=== PATIENT | female | born 1990 | race Caucasian/White ===

== ENCOUNTER 2018-07-25 14:32 | Emergency (ER) | payer OTHER ==
[~2018-07-25] VITALS: Ht 162.6 cm; Wt 68.0 kg
[2018-07-25] MEDS ORDERED: NS IV 1000 ML 1,000 ML IV SCH (16:00)
[2018-07-25 16:16] LABS: BASOPHILS % (AUTO) 0 % (0-10); EOSINOPHILS % (AUTO) 0 % (0-10); HEMATOCRIT 40 % (35-52); HEMOGLOBIN 13.6 G/DL (11.5-16.0); LYMPHOCYTES # (AUTO) 1.6 X 10^3 (1.0-4.0); LYMPHOCYTES % (AUTO) 8 % (12-44); MEAN CORPUSCULAR HEMOGLOBIN 30 PG (25-34); MEAN CORPUSCULAR HGB CONC 34 G/DL (32-36); MEAN CORPUSCULAR VOLUME 89 FL (80-99); MONOCYTES # (AUTO) 2.2 X 10^3 (0.0-1.0); MONOCYTES % (AUTO) 12 % (0-12); NEUTROPHILS # (AUTO) 15.1 X 10^3 (1.8-7.8); NEUTROPHILS % (AUTO) 80 % (42-75); PLATELET COUNT 284 10^3/uL (130-400); RED CELL DISTRIBUTION WIDTH 12.8 % (10.0-14.5); WHITE BLOOD COUNT 18.9 10^3/uL (4.3-11.0)
[2018-07-25 16:39] LABS: BAND NEUTROPHILS 0 %; BASOPHILS % (MANUAL) 0 %; EOSINOPHILS % (MANUAL) 0 %; LYMPHOCYTES % (MANUAL) 7 %; MONOCYTES % (MANUAL) 9 %; NEUTROPHILS % (MANUAL) 84 %; RBC MORPH NORMAL
[2018-07-25] MEDS ORDERED: KETOROLAC 30 MG/ML VIAL IVP ONE (16:45)
[2018-07-25] MEDS ORDERED: DEXAMETHASONE 10 MG/ML (DECADRON) 1 ML VIAL IV ONE (16:45)
[2018-07-25] MEDS ORDERED: cefTRIAXone FOR IV USE 1,000 MG in WATER (STERILE) FOR INJECTION 10 ML IV ONE (16:45)
[2018-07-25] MEDS ORDERED: PRD20T PO (16:50)
[2018-07-25] MEDS ORDERED: CEFU500T63 PO (16:50)
--- NOTE | 2018-07-25 16:50 | ED EENT ---
History of Present Illness General Chief Complaint: Oral/Throat Problems Stated Complaint: SORE THROAT AND EARS Nursing Triage Note: PATIENT STATES THAT HER THROAT HAS BEEN HURTING FOR 3 DAYS. Source: patient Exam Limitations: no limitations History of Present Illness Date Seen by Provider: Jul 25, 2018 Time Seen by Provider: 16:46 Initial Comments To ER with a three-day history of sore throat. She has bilateral ear pain as well. Timing/Duration: abrupt Severity: moderate Location: throat Associated Symptoms: No cough, No facial pain/swelling; fever, sore throat Allergies and Home Medications Allergies Coded Allergies: No Known Drug Allergies (Unverified , 07/25/18) Patient Home Medication List Home Medication List Reviewed: Yes Review of Systems Review of Systems Constitutional: see HPI Eyes: No Symptoms Reported Ears: See HPI, Pain Nose: no symptoms reported Mouth: no symptoms reported Throat: see HPI, pain, swelling Respiratory: no symptoms reported Cardiovascular: no symptoms reported Musculoskeletal: no symptoms reported Past Guxkert-Rehgbs-Iqjdgo Hx Patient Social History Alcohol Use: Denies Use Recreational Drug Use: No Smoking Status: Current Someday Smoker Type Used: Cigarettes Recent Foreign Travel: No Contact w/Someone Who Travel: No Recent Infectious Disease Expo: No Recent Hopitalizations: No Seasonal Allergies Seasonal Allergies: No Past Medical History Surgeries: No Respiratory: No Cardiac: No Neurological: No Genitourinary: No Gastrointestinal: No Musculoskeletal: No Endocrine: No HEENT: No Cancer: No Psychosocial: No Integumentary: No Physical Exam Vital Signs Vital Signs - First Documented 07/25/18 14:51 Temp 99.9 Pulse 120 Resp 18 B/P (MAP) 115/77 (90) Pulse Ox 97 Height, Weight, BMI Height: 5'4.00" Weight: 150lbs. 0oz. 68.669725hk; BMI Method:Stated General Appearance: WD/WN, no apparent distress Eyes: bilateral eye normal inspection, bilateral eye PERRL, bilateral eye EOMI Ears: bilateral ear auricle normal, bilateral ear canal normal, bilateral ear TM normal Mouth/Throat: normal mouth inspection, tonsillar exudate, tonsillar swelling, other (uvula is midline, both tonsils are symmetrical though they are both very enlarged and erythematous with exudate.) Neck: non-tender, full range of motion, lymphadenopathy (R), lymphadenopathy (L ) Respiratory: normal breath sounds, no respiratory distress, no accessory muscle use Gastrointestinal: normal bowel sounds, non tender Neurologic/Psychiatric: alert, normal mood/affect, oriented x 3 Skin: normal color, warm/dry Progress/Results/Core Measures Results/Orders Lab Results Laboratory Tests Test 07/25/18 14:58 07/25/18 16:09 Range/Units Group A Streptococcus Screen NEGATIVE NEGATIVE White Blood Count 18.9 H 4.3-11.0 10^3/uL Red Blood Count 4.48 4.35-5.85 10^6/uL Hemoglobin 13.6 11.5-16.0 G/DL Hematocrit 40 35-52 % Mean Corpuscular Volume 89 80-99 FL Mean Corpuscular Hemoglobin 30 25-34 PG Mean Corpuscular Hemoglobin Concent 34 32-36 G/DL Red Cell Distribution Width 12.8 10.0-14.5 % Platelet Count 284 130-400 10^3/uL Mean Platelet Volume 9.0 7.4-10.4 FL Neutrophils (%) (Auto) 80 H 42-75 % Lymphocytes (%) (Auto) 8 L 12-44 % Monocytes (%) (Auto) 12 0-12 % Eosinophils (%) (Auto) 0 0-10 % Basophils (%) (Auto) 0 0-10 % Neutrophils # (Auto) 15.1 H 1.8-7.8 X 10^3 Lymphocytes # (Auto) 1.6 1.0-4.0 X 10^3 Monocytes # (Auto) 2.2 H 0.0-1.0 X 10^3 Eosinophils # (Auto) 0.0 0.0-0.3 10^3/uL Basophils # (Auto) 0.0 0.0-0.1 10^3/uL Neutrophils % (Manual) 84 % Lymphocytes % (Manual) 7 % Monocytes % (Manual) 9 % Eosinophils % (Manual) 0 % Basophils % (Manual) 0 % Band Neutrophils 0 % Blood Morphology Comment NORMAL Serum Test, Qualitative NEGATIVE NEGATIVE Monoscreen NEGATIVE NEGATIVE Micro Results Microbiology 07/25/18 Influenza Types A,B Antigen (BHARATI) - Final, Complete My Orders Orders - ABDI REYNOLDS APRN Rapid Strep A Screen (07/25/18 15:00) Cbc With Automated Diff (07/25/18 15:15) Monotest (07/25/18 15:15) Influenza A And B Antigens (07/25/18 15:15) Hcg,Qualitative Serum (07/25/18 15:15) Iv Heplock-Insert (Order) (07/25/18 15:15) Ns Iv 1000 Ml (Sodium Chloride 0.9%) (07/25/18 16:00) Manual Differential (07/25/18 16:09) Dexamethasone Injection (Decadron Inject (07/25/18 16:45) Ceftriaxone For Iv Use (Rocephin For I (07/25/18 16:45) Ketorolac Injection (Toradol Injection) (07/25/18 16:45) Vital Signs/I&O 07/25/18 14:51 Temp 99.9 Pulse 120 Resp 18 B/P (MAP) 115/77 (90) Pulse Ox 97 Blood Pressure Mean: 90 Departure Impression Primary Impression: Acute bacterial pharyngitis Disposition: HOME, SELF-CARE Condition: Stable Departure-Patient Inst. Decision time for Depature: 16:48 Patient Instructions: Sore Throat in Adults Add. Discharge Instructions: 1. Return to ER for any concerns 2. Steroids and antibiotics as directed. Return to ER for any worsening symptoms or other concerns. Follow-up with your doctor next week. All discharge instructions reviewed with patient and/or family. Voiced understanding. Scripts Prednisone (Prednisone) 20 Mg Tab 40 MG PO DAILY, #8 TAB Prov: ABDI REYNOLDS APRN 07/25/18 Cefuroxime Axetil (Cefuroxime) 500 Mg Tablet 500 MG PO BID, #14 TAB Prov: ABDI REYNOLDS APRN 07/25/18 Work/School Note: Work Release Form Date Seen in the Emergency Department: Jul 25, 2018 Return to Work: Jul 28, 2018 ABDI REYNOLDS APRN Jul 25, 2018 16:50
[2018-07-25] MEDS ORDERED: NS (IVPB) 50 ML ONE (16:52)
[2018-07-25 17:51] VITALS: BP 112/67
== END 2018-07-25 17:53 | disposition home or self-care (01) ==
LOC: ER 14:41
DX: J02.8 Acute pharyngitis due to other specified organisms (principal); B96.89 Other specified bacterial agents as the cause of diseases classified elsewhere; F17.210 Nicotine dependence, cigarettes, uncomplicated
CPT/HCPCS: 36415; 84703; 85007; 85027; 86308; 87430; 87804